=== PATIENT | female | born 1995 | race Caucasian/White ===

== ENCOUNTER 2020-01-06 11:36 | Emergency (ER) | payer BC, OTHER, SELFPAY ==
[2020-01-06 12:34] LABS: BHCG - Serum Negative (NEGATIVE); Pregs Control Background? CLEAR/WHITE (CLR/WHITE); Pregs Control Bar Appear? YES (CONTROL BAR)
[2020-01-06 13:40] LABS: Bilirubin Negative (Negative); Blood, Urine Negative (Negative); Glucose, Urine (Dipstick) Negative (Negative); Ketone, Urine Negative (Negative); Leukocyte Negative (Negative); Nitrite Negative (Negative); Protein, Urine (Dipstick) Negative (Neg-Trace); Urobilinogen 0.2 mg/dL (Less than 2)
[2020-01-06 13:47] LABS: Clarity Clear (Clear)
== END 2020-01-06 14:50 | disposition home or self-care (01) ==
LOC: ERS 11:36
DX: R14.0 Abdominal distension (gaseous) (principal); F41.9 Anxiety disorder, unspecified; F32.9 Major depressive disorder, single episode, unspecified; F17.210 Nicotine dependence, cigarettes, uncomplicated; Z79.899 Other long term (current) drug therapy
CPT/HCPCS: 36415; 81003; 84702; 84703; 99284

== ENCOUNTER 2020-07-11 22:17 | Emergency (ER) | payer OTHER, SELFPAY ==
[2020-07-12] MEDS ORDERED: Lidocaine 1% PF 5 ML VIAL ONE (00:14)
[2020-07-12] MEDS ORDERED: HYDROcodone/Acetaminophen 10/325 mg Tablet ONE (00:38)
[2020-07-12] MEDS ORDERED: Bacitracin 1 PK ONE (01:37)
[2020-07-12] MEDS ORDERED: Ketorolac Tromethamine 30 MG/ML VIAL ONE (01:37)
== END 2020-07-12 02:01 | disposition home or self-care (01) ==
LOC: ERS 22:17
DX: L02.214 Cutaneous abscess of groin (principal); F17.210 Nicotine dependence, cigarettes, uncomplicated
CPT/HCPCS: 10060; 96372; J1885